=== PATIENT | male | born 1995 | race African-American/Black ===

== ENCOUNTER 2025-05-09 03:35 | Emergency (ER) | payer MEDICAID ==
[~2025-05-09] VITALS: Ht 182.9 cm; Wt 97.0 kg
[2025-05-09 03:45] VITALS: O2SAT 99
[2025-05-09 03:47] VITALS: TEMP 36.8; O2SAT 99
[2025-05-09 04:41] LABS: CLARITY URINE CLEAR (CLEAR); COLOR URINE YELLOW (YELLOW); GLUCOSE URINE NEGATIVE (NEGATIVE); KETONES URINE NEGATIVE (NEGATIVE); LEUKOCYTE ESTERASE URINE NEGATIVE (NEGATIVE); NITRITE URINE NEGATIVE (NEGATIVE); OCCULT BLOOD URINE NEGATIVE (NEGATIVE); PH URINE 6.5 (4.5-8.0); PROTEIN URINE NEGATIVE (NEGATIVE); SPECIFIC GRAVITY URINE 1.019 (1.005-1.030); UROBILINOGEN URINE 1.0 E.U./dL (0.2-1.0)
[2025-05-09] MEDS ORDERED: NAPR-1176 MT (05:02)
[2025-05-09 05:18] VITALS: BP 144/93; PULSE 76; RESP 18
[2025-05-09] MEDS: KETOROLAC 15MG/ML VIAL IM ONE (05:18)
== END 2025-05-09 05:22 | disposition home or self-care (01) ==
LOC: ER 03:35
DX: I86.1 Scrotal varices (principal); N43.3 Hydrocele, unspecified; E78.00 Pure hypercholesterolemia, unspecified; Z98.890 Other specified postprocedural states
CPT/HCPCS: 81003; 93976; 76870; 96372; 99285; J1885; Z7610